=== PATIENT | female | born 1960 | race Caucasian/White ===

== ENCOUNTER 2020-06-06 12:19 | Emergency (ER) | payer OTHER ==
[~2020-06-06] VITALS: Ht 175.3 cm; Wt 84.8 kg
[~2020-06-06 12:19] MED LIST: Z.0.SKELAXIN800 MG; [UNRECOGNIZED DRUG - OTHER]
[2020-06-06] MEDS ORDERED: CLINDAMYCIN 600MG / 50ML 50 ML IV STA (12:35)
[2020-06-06] MEDS ORDERED: CEFTRIAXONE SOD 2 GM/100 ML ML IV ONE (12:45)
[2020-06-06] MEDS ORDERED: SODIUM CHLORIDE 0.9% 1000ML 1,000 ML IV SCH (12:45)
[2020-06-06] MEDS ORDERED: DEXAMETHASONE SOD PHOS 10 MG/1 ML VIAL IV ONE (12:45)
[2020-06-06 12:48] LABS: BASOPHILS # (AUTO) 0.1 (0.0-0.1); BASOPHILS % 0.5 % (0.0-1.0); EOSINOPHILS # (AUTO) 0.1 (0.0-0.4); EOSINOPHILS % 0.9 % (0.0-6.0); HEMATOCRIT 40.1 % (34.2-44.1); HEMOGLOBIN 13.7 g/dL (12.0-16.0); LYMPHOCYTES # (AUTO) 1.7 (1.0-3.2); LYMPHOCYTES % 11.6 % (18.0-39.1); MEAN CORPUSCULAR HEMOGLOBIN 31.6 pg (28-32); MEAN CORPUSCULAR HGB CONC 34.2 g/dL (31-35); MEAN CORPUSCULAR VOLUME 92.4 fL (81-99); MONOCYTES # (AUTO) 1.2 (0.2-0.8); MONOCYTES % 7.8 % (4.4-11.3); NEUTROPHILS # (AUTO) 11.6 (2.1-6.9); NEUTROPHILS % 78.1 % (38.7-80.0); PLATELET COUNT 331 x10e3/uL (140-360); RED BLOOD COUNT 4.34 x10e6/uL (3.6-5.1); RED CELL DISTRIBUTION WIDTH 11.9 % (11.7-14.4)
[2020-06-06] MEDS ORDERED: CLINDAMYCIN 300 MG IV ONE (12:49)
[2020-06-06] MEDS ORDERED: CEFTRIAXONE SOD 2 GM 100 ML IV ONE (13:00)
[2020-06-06 13:05] LABS: ALANINE AMINOTRANSFERASE 21 IU/L (0-55); ALBUMIN 3.9 g/dL (3.5-5.0); ALKALINE PHOSPHATASE 89 IU/L (40-150); BLOOD UREA NITROGEN 8 mg/dL (7-26); BUN/CREATININE RATIO 11 (6-25); CALCIUM 9.5 mg/dL (8.4-10.2); CARBON DIOXIDE 27 mmol/L (22-29); CHLORIDE 100 mmol/L (98-107); CREATININE, SERUM 0.72 mg/dL (0.57-1.11); EST GLOMERULAR FILTRATION RATE > 60 ML/MIN (60-); GLUCOSE 158 mg/dL (74-118); SODIUM 137 mmol/L (136-145)
[2020-06-06] MEDS ORDERED: SODIUM CHLORIDE 0.9% 50ML 50 ML ONE (13:27)
[2020-06-06] MEDS ORDERED: IOPAMIDOL 370 MG/ML 200 ML INFUS..BTL INJ ONE (13:27)
[2020-06-06] MEDS ORDERED: CLEOCIN HCL300 MG PO (14:40)
[2020-06-06] MEDS ORDERED: ULTRAM50 MG PO (14:41)
== END 2020-06-06 15:00 | disposition home or self-care (01) ==
LOC: ER 12:32
DX: J02.0 Streptococcal pharyngitis (principal); K02.9 Dental caries, unspecified; I10 Essential (primary) hypertension; M54.9 Dorsalgia, unspecified; G89.29 Other chronic pain
CPT/HCPCS: 36415; 70491; 80053; 83518; 85025; 99284; J0696; J1100; J7030; Q9967